=== PATIENT | male | born 1975 | race Caucasian/White ===

== ENCOUNTER 2024-09-23 01:17 | Emergency (ER) | payer BC ==
[~2024-09-23] VITALS: Ht 182.9 cm; Wt 99.8 kg
[~2024-09-23 01:17] MED LIST: ALPRAZOLAM0.5 MG PO; AMBIEN5 MG PO; BENADRYL25 M1; CALCIUM 1,2001 EACH PO; CARAFATE1 G1 PO; CATAPRES0.1 MG PO; COLESTIPOL HCL1 GM PO; CREON DR 6,000 U1 EA PO; FEROSUL325 MG PO; KLONOPIN0.5 MG PO; LEVEMIR 3M100 UNITS/ SC; LEVEMIR100 UNIT/1 SQ; METOPROLOL SUCC50 MG PO; METOPROLOL TART25 MG PO; METOPROLOL TART50 MG PO; NORVASC10 MG PO; NOVOLOG100 UNITS1 SC; PANCRELIPASE 51 EACH PO; PHENERGAN25 M3 PO; PREDNISONE PO; PREDNISONE10 MG PO; SOMA350 MG PO; TESSALON PERLE100 MG PO; TRAMADOL HCL E100 MG PO; TYLENOL WITH C1 EAC1; ULTRAM50 MG PO; VITAMIN C1000 MG; Z.0.IMURAN50 MG PO; Z.0.LEXAPRO10 MG PO; Z.0.LISINOPRIL20 MG PO; Z.0.LUNESTA3 MG PO; Z.0.NORCO 10-325 T1 PO; Z.0.OMEPRAZOLE40 MG PO; Z.0.PREDNISONE10 MG PO; Z.0.PREDNISONE20 MG PO; Z.0.TESSALON PERLE10 PO; Z.0.WARFARIN SODIUM4 PO; ZANTAC150 MG PO; ZOFRAN4 MG PO
[2024-09-23 01:23] VITALS: PULSE 81; RESP 20; TEMP 97.8
[2024-09-23 03:13] VITALS: BP 147/87; PULSE 74; RESP 17; TEMP 98.1; O2SAT 98
== END 2024-09-23 03:01 | disposition home or self-care (01) ==
LOC: ER 01:22
DX: S02.2XXA Fracture of nasal bones, initial encounter for closed fracture (principal); W21.07XA Struck by softball, initial encounter; Y93.64 Activity, baseball; Y92.320 Baseball field as the place of occurrence of the external cause; M54.9 Dorsalgia, unspecified; G89.29 Other chronic pain; Z85.038 Personal history of other malignant neoplasm of large intestine; Z95.4 Presence of other heart-valve replacement; Z87.39 Personal history of other diseases of the musculoskeletal system and connective tissue
CPT/HCPCS: 70486; 99283